=== PATIENT | male | born 1995 | race Caucasian/White ===

== ENCOUNTER 2020-08-15 15:42 | Emergency (ER) | payer BC, SELFPAY ==
--- NOTE | ~2020-08-15 | XR_ITS ---
EXAMINATION: XR ankle RT min 3V, XR tibia fibula RT 2V EXAM DATE: 08/15/2020 16:01 INDICATION: Initial encounter following injury, with pain of the right ankle, tibia and fibula. TECHNIQUE: Right ankle frontal, lateral and oblique projections obtained and reviewed. Right tibia/fi bula frontal and lateral projections obtained and reviewed. Comparison is made to prior examination f rom 07/24/2016. FINDINGS: Right tibial and fibular shafts unremarkable. The right ankle mortise appears intact. Th ere are no acute fractures or dislocations identified. There is no subcutaneous gas. The soft tissu e is unremarkable. There are no radiopaque foreign bodies. IMPRESSION: No acute osseous findings. Reviewed, dictated and finalized at location A. IMPRESSION: No acute osseous findings. IMPRESSION: No acute osseous findings.
[2020-08-15 15:47] VITALS: BP 134/80; PULSE 95; RESP 18; TEMP 36.4; O2SAT 97
--- NOTE | 2020-08-15 15:52 | ED.LOWEXIN ---
HPI - Extremity Injury (Lower) General Chief Complaint: Extremity Injury, Lower Stated Complaint: r ankle pain Time Seen by Provider: 08/15/20 15:46 Source: RN notes reviewed History of Present Illness HPI Narrative: Patient presents to emergency department from home for right ankle pain. Patient states symptoms began last night when he is playing soccer and another player landed on his right ankle. States since that time has had pain and swelling in the right lateral ankle with swelling present unable to place full weight on the right ankle. Denies any other trauma or injury denies any numbness or tingling in the extremities or any other symptoms. Took a Tylenol last night was not taken pain medication today Related Data Allergies Allergy/AdvReac Type Severity Reaction Status Date / Time No Known Allergies Allergy Unverified 09/27/18 03:18 Review of Systems Review of Systems: Narrative: Gen.: Denies fevers or chills Musculoskeletal: See HPI Neuro: Denies numbness, tingling, weakness Skin: Denies rash Endo: Denies DM PMFSH Past Medical History Medical History (Updated 08/15/20 @ 16:21 by Carlos Enrique Zavaleta DO) Patient denies significant medical history Social History Social History (Updated 08/15/20 @ 15:53 by Carlos Enrique Zavaleta DO) Smoking status: Never smoker Exam Narrative: Exam Narrative: APPEARANCE: No acute distress, nontoxic, resting in bed Eyes: EOMI HEENT: Normocephalic, atraumatic, RESPIRATORY: No respiratory distress MUSCULOSKELETAl: Tender palpation of the right lateral ankle with swelling present, mild tenderness over the medial ankle with swelling no tenderness of the base the fifth metatarsal, tenderness over the proximal fibula dorsalis pedis pulse 2+, neurovascular intact NEURO: Awake and alert. Following commands, speech normal, no focal deficits SKIN:: Warm, dry. Normal Color no rash or lesions Course Course Emergency Course: Discussed with patient results of workup and diagnosis. Discussed need for follow-up with primary care, proper use of medication, and reasons to return to the emergency department. Patient understands and agrees to current treatment plan Vital Signs Vital signs: Vital Signs Temperature 97.5 F L 08/15/20 15:47 Pulse Rate 95 08/15/20 15:47 Respiratory Rate 18 08/15/20 15:47 Blood Pressure 134/80 08/15/20 15:47 Pulse Oximetry 97 08/15/20 15:47 Temperature 97.5 F L 08/15/20 15:47 Pulse Rate 95 08/15/20 15:47 Respiratory Rate 18 08/15/20 15:47 Blood Pressure 134/80 08/15/20 15:47 Pulse Oximetry 97 08/15/20 15:47 MDM - Extremity Injury (Lower) Imaging Data Radiologist's impression: ITS Impressions Ankle X-Ray 08/15/20 16:02 IMPRESSION: No acute osseous findings. Tibia/Fibula X-Ray 08/15/20 16:02 IMPRESSION: No acute osseous findings. Discharge Plan Discharge Clinical Impression: Right ankle sprain Patient Disposition: Home, Self-Care Condition: Stable Instructions: Antibiotic Form, Ankle Sprain (ED) Additional Instructions: Return for increasing pain, numbness or tingling in the extremities or any other symptoms or concern. Please keep the foot elevated at rest Prescriptions: New ibuprofen [IBU] 600 mg tablet 600 mg PO Q6H PRN (Reason: pain) Qty: 20 RF: 0 Follow-up/Referrals: Sohail Kebede MD [Primary Care Provider] - 2 Days Time of Disposition: 16:21
[2020-08-15] MEDS: IBUPROFEN 600 MG TABLET PO (15:58)
== END 2020-08-15 16:31 | disposition home or self-care (01) ==
PROVIDERS: Emergency Provider Emergency Medicine; PCP Family Medicine Adolescent Medicine
DX: S93.401A Sprain of unspecified ligament of right ankle, initial encounter (principal); W51.XXXA Accidental striking against or bumped into by another person, initial encounter; Y93.66 Activity, soccer
CPT/HCPCS: 73590; 73610; 99284; A9270